=== PATIENT | female | born 1960 | race Caucasian/White ===

== ENCOUNTER → 2017-02-14 | Outpatient (CLI) | payer OTHER ==
--- NOTE | 2017-02-14 11:07 | US ---
EXAMINATION TYPE: US transvaginal DATE OF EXAM: 02/14/2017 COMPARISON: US 2017 CLINICAL HISTORY: N83.20 PREV OVARIAN CYST. Follow up right ovarian cyst, history of hysterectomy and tubal ligation, 3, para 3 TECHNIQUE: Transvaginal (TV) only per ordering physician Date of LMP: patient states about 10 years ago EXAM MEASUREMENTS: Uterus: surgically absent Endometrial Stripe: surgically absent Right Ovary: 5.5 x 2.8 x 2.8 cm Left Ovary: not seen 1. Uterus: surgically absent 2. Endometrium: surgically absent 3. Right Ovary: 4.6 x 1.7 x 1.9cm cystic area, 1 large bilobed cyst versus 2 separate smaller cysts 4. Left Ovary: not seen on today's exam 5. Bilateral Adnexa: wnl 6. Posterior cul-de-sac: wnl IMPRESSION: 1. Cystic lesion right ovary persists. Consider further imaging with MRI and/or CT.
== END | disposition home or self-care (01) ==
LOC: RADUSWWP 10:24
PROVIDERS: ATTEND Obstetrics & Gynecology
DX: N83.201 Unspecified ovarian cyst, right side (principal)
CPT/HCPCS: 76830

== ENCOUNTER → 2017-05-04 | Outpatient (CLI) | payer OTHER ==
--- NOTE | 2017-05-04 11:50 | US ---
EXAMINATION TYPE: US transvaginal DATE OF EXAM: 05/04/2017 COMPARISON: US CLINICAL HISTORY: N83.20 Unspecified ovarian cyst, right side. TECHNIQUE: Transvaginal sonographic images per order. Date of LMP: 10 years prior EXAM MEASUREMENTS: Uterus: Surgically absent Endometrial Stripe: Surgically absent Right Ovary: 4.5 x 1.5 x 1.1 Left Ovary: not visualized 1. Uterus: Surgically absent 2. Endometrium: Surgically absent 3. Right Ovary: cystic structure seen believed to be right ovary with no visualized ovarian tissue, extensive peristalsing bowel here making exam technically difficult 4. Left Ovary: Obscured by overlying bowel gas 5. Bilateral Adnexa: small amount of ff adjacent to right ovary 6. Posterior cul-de-sac: wnl IMPRESSION: Cystic focus is suspected in the right adnexal region somewhat similar to prior exam but perhaps slightly diminished in size in the interval. Exam is limited. Follow-up.
== END ==
LOC: RADUSWWP 10:57
PROVIDERS: ATTEND Obstetrics & Gynecology
DX: N83.201 Unspecified ovarian cyst, right side (principal)
CPT/HCPCS: 76830

== ENCOUNTER 2017-10-22 16:53 | Emergency (ER) | payer OTHER ==
[2017-10-22] MEDS ORDERED: IBUPROFEN 800 MG TAB PO STA (17:24)
--- NOTE | 2017-10-22 18:21 | XR ---
EXAMINATION TYPE: XR foot complete LT DATE OF EXAM: 10/22/2017 CLINICAL HISTORY: Fall, pain TECHNIQUE: Frontal, lateral, and oblique images of the left foot are obtained. COMPARISON: None FINDINGS: Obliquely oriented fracture of the fifth metatarsal diaphysis. No intra-articular extension of fracture line. Soft tissue swelling is evident. There is slight medial displacement of the distal fragment. No additional fractures. No radiopaque foreign bodies. IMPRESSION: Obliquely oriented mid diaphyseal fifth metatarsal fracture with soft issue swelling.
--- NOTE | 2017-10-22 18:23 | XR ---
EXAMINATION TYPE: XR ankle complete LT DATE OF EXAM: 10/22/2017 CLINICAL HISTORY: Fall, pain TECHNIQUE: Frontal, lateral and oblique images of the left ankle and foot are obtained. COMPARISON: None. FINDINGS: There is no acute fracture/dislocation evident in the left ankle. The ankle mortise appea rs within normal limits. The overlying soft tissue appears unremarkable. Fifth metatarsal fracture i s partially visualized and better described on concurrently performed foot radiograph. IMPRESSION: No fracture of the left ankle. For findings pertaining to the fifth metatarsal fracture please see se parate report.
--- NOTE | 2017-10-22 18:27 | ED ---
Lower Extremity Injury HPI - General Chief Complaint: Extremity Injury, Lower Stated Complaint: fall/foot pain Time Seen by Provider: 10/22/17 17:18 Source: patient, RN notes reviewed Mode of arrival: ambulatory Limitations: no limitations - History of Present Illness Initial Comments: This is a 57-year-old female who states that Monday morning around 6:30 AM she was rocking her 2-year-old grandson and walking around the house when she tripped on a highchair tray twisting her left foot and ankle. Patient stated that she iced and elevated taking ibuprofen 800mg PRN for pain. Patient describes the pain as a 6 out of 10 throbbing pain located to the left aspect of the foot and ankle that increases to about a 10 with ambulation. The pain radiates towards the left ankle from the left lateral aspect of the foot. Patient denies any numbness, tingling, loss sensation, paresthesias or muscle weakness. In addition to pain patient admitted to ecchymosis and soft tissue swelling of the foot and ankle. Patient was concerned when the pain continued for possible fracture present to the emergency department today. Patient denies falling when she stepped on the tray coming denying injury to any other extremity or to the head. - Related Data Previous Rx's Medication Instructions Recorded Ibuprofen [Motrin] 800 mg PO Q8H PRN 7 Days #21 tab 10/22/17 Allergies Allergy/AdvReac Type Severity Reaction Status Date / Time No Known Allergies Allergy Verified 10/22/17 17:02 Review of Systems ROS Statement: Those systems with pertinent positive or pertinent negative responses have been documented in the HPI. ROS Other: All systems not noted in ROS Statement are negative. Constitutional: Denies: fever, chills ENT: Denies: ear pain, throat pain Respiratory: Denies: cough, dyspnea Cardiovascular: Denies: chest pain, palpitations Endocrine: Denies: fatigue Gastrointestinal: Denies: abdominal pain, nausea, vomiting Genitourinary: Denies: urgency, dysuria Skin: Denies: rash, lesions Neurological: Denies: headache, weakness, numbness, abnormal gait Past Medical History Past Medical History: Thyroid Disorder Additional Past Medical History / Comment(s): interstitial cystitis History of Any Multi-Drug Resistant Organisms: None Reported Past Surgical History: Hysterectomy, Tonsillectomy 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 Eye: Pupils are equal, round and reactive to light, extra-ocular movements are intact. No nystagmus. There is normal conjunctiva bilaterally. No signs of icterus. Ears, nose, mouth and throat: There are moist mucous membranes and no oral lesions. Neck: The neck is supple, there is no tenderness or JVD. Cardiovascular: There is a regular rate and rhythm. No murmur, rub or gallop is appreciated. Respiratory: Lungs are clear to auscultation, respirations are non-labored, breath sounds are equal. No wheezes, stridor, rales, or rhonchi. Musculoskeletal: Soft tissue swelling and ecchymosis along the lateral aspect of the left ankle and foot. Full range motion ROM with inversion, eversion, dorsi flexion and plantar flexion of the ankles bilaterally, increased tenderness with inversion with 5/5 strength.Tenderness to palpation over dorsal aspect of left foot. no tenderness to palpation over the lateral or medial mallelous. Sensation intact of the LE equally b/l even between first webbed space. +2 dorsali pedis pulses equal bilaterally 2+. Capillary refill < 2seconds. Compartment soft and compressible. Neurological: A&O x 3. CN II-XII intact, There are no obvious motor or sensory deficits. Coordination appears grossly intact. Speech is normal. Skin: Skin is warm and dry and no rashes or lesions are noted. Psychiatric: Cooperative, appropriate mood & affect, normal judgment. Limitations: no limitations Course Vital Signs 10/22/17 10/22/17 16:57 18:56 Temperature 98.2 F 97.5 F L Pulse Rate 80 84 Respiratory 16 20 Rate Blood Pressure 153/77 130/70 O2 Sat by Pulse 97 99 Oximetry Medical Decision Making - Medical Decision Making 57yo female with cc of left foot pain, bruising or swelling concerning for possible fracture. Pt given ibuprofen 800mg for pain mgmt. XR revealed obliquely oriented mid diaphyseal fifth metatarsal fracture with soft tissue swelling, appear to have minimal displacement. Pt neurovascularly intact. Compartments compressible. Pt placed in posterior mold splint, given RX for crutches and ibuprofen 800mg for pain mgmt as well as orthopedic f/u in 1-2 days for further evaluation and treatment. Pt was educated on rice instructions , and instructed to return any worsening symptoms. Pt agreed, and I asked patient if she had any questions, she could not think of any at this time. Pt was discharged in stable condition after discussing case with Dr. Watson as well as reviewing the imaging together. Disposition Clinical Impression: Fracture of fifth metatarsal bone of left foot Disposition: HOME SELF-CARE Condition: Good Instructions: Foot Fracture in Adults (ED) Additional Instructions: Please use over the counter pain medication as discussed. Please follow-up with family doctor in the next 2 days with orthopedic surgery. Please return to emergency room if the symptoms increase or worsen or for any other concerns, as discussed. Prescriptions: Ibuprofen [Motrin] 800 mg PO Q8H PRN 7 Days #21 tab PRN Reason: Pain Is patient prescribed a controlled substance at d/c from ED?: No Referrals: Derrek Palm DO [Primary Care Provider] - 1-2 days Naga Camacho PAC [PHYSICIAN ESTIMATOR [facility]] - 1-2 days Time of Disposition: 18:33
[2017-10-22 18:57] VITALS: BP 130/70; PULSE 84; RESP 20; TEMP 97.5
== END 2017-10-22 18:58 | disposition home or self-care (01) ==
LOC: EC 16:53
DX: S92.352A Displaced fracture of fifth metatarsal bone, left foot, initial encounter for closed fracture (principal); X50.1XXA Overexertion from prolonged static or awkward postures, initial encounter; Y93.01 Activity, walking, marching and hiking
CPT/HCPCS: 29515; 99283

== ENCOUNTER → 2018-01-26 | Outpatient (CLI) | payer OTHER ==
--- NOTE | 2018-01-29 11:52 | MM ---
Reason for exam: screening (asymptomatic). Last mammogram was performed 1 year and 1 month ago. History: Patient is postmenopausal. Physical Findings: A clinical breast exam by your physician is recommended on an annual basis and results should be correlated with mammographic findings. MG 3D Screening Mammo W/Cad Bilateral CC and MLO view(s) were taken. Prior study comparison: December 31, 2016, bilateral MG 3d screening mammo w/cad. November 28, 2015, bilateral MG 3d screening mammo w/cad. The breast tissue is heterogeneously dense. This may lower the sensitivity of mammography. Finding #1: There is a 7 mm equal density (isodense) mass in the upper quadrant, central position of the right breast. Finding #2: There are typically benign calcifications. ASSESSMENT: Incomplete: need additional imaging evaluation, BI-RAD 0 RECOMMENDATION: Special view mammogram of the right breast. If lesion persists on supplemental views, image directed ultrasound is recommended. [facility] will attempt to contact patient to return for supplemental views and ultrasound if indicated.
== END | disposition home or self-care (01) ==
LOC: RADMAMWWP 10:52
PROVIDERS: ATTEND Obstetrics & Gynecology
DX: Z12.31 Encounter for screening mammogram for malignant neoplasm of breast (principal)
CPT/HCPCS: 77063; 77067

== ENCOUNTER → 2018-02-09 | Outpatient (CLI) | payer OTHER ==
--- NOTE | 2018-02-09 11:25 | MM ---
Reason for exam: additional evaluation requested from abnormal screening. Last mammogram was performed less than 1 month ago. History: Patient is postmenopausal. Physical Findings: Nurse did not find any significant physical abnormalities on exam. MG 3D Work Up W/Cad RT Spot compression CC, spot compression MLO, and ML view(s) were taken of the right breast. Prior study comparison: January 26, 2018, bilateral MG 3d screening mammo w/cad. December 31, 2016, bilateral MG 3d screening mammo w/cad. The breast tissue is heterogeneously dense. This may lower the sensitivity of mammography. There is no discrete abnormality on compression or ML. No significant new findings when compared with previous films. These results were verbally communicated with the patient and result sheet given to the patient on 02/09/18. ASSESSMENT: Benign, BI-RAD 2 RECOMMENDATION: Return to routine screening mammogram schedule for both breasts.
--- NOTE | 2018-02-09 16:49 | BD ---
EXAMINATION TYPE: Axial Bone Density DATE OF EXAM: 02/09/2018 COMPARISON: 01.06.2016 CLINICAL HISTORY: 57 YR OLD FEMALE.....ICD-10 CODE: M89.9 DISORDER OF BONE Height: 62.8 Weight: 144 FRAX RISK QUESTIONS: NOTHING TO NOTE HERE RISK FACTORS HISTORY OF: Family History of Osteoporosis: GR GRANDMOTHER Active: YES, SHE WORKD Postmenopausal woman: UNKNOWN, PARTIAL HYST AT 47 YRS OLD MEDICATIONS: Thyroid Medications: YES, SYNTHROID, FOR ABOUT 5+ YRS Additional Medications: WELLBUTRIN, VIT D AND CALCIUM, STATIN FOR CHOLESTEROL Additional History: NOTHING ADDITIONAL TO NOTE EXAM MEASUREMENTS: Bone mineral densitometry was performed using the [employer] System. Bone mineral density as measured about the Lumbar spine is: ----- L1-L4(G/cm2): 0.940 T Score Values are as follows: ----- L1: -1.4 ----- L2: -2.7 ----- L3: -1.8 ----- L4: -2.2 ----- L1-L4: -2.0 Bone mineral density has: Increased 3.3% since study of: 01.06.2016 Bone mineral density about the R hip (g/cm2): 0.857 Bone mineral density about the L hip (g/cm2): 0.833 T Score values are as follows: -----R Neck: -1.8 -----L Neck: -1.8 -----R Total: -1.2 -----L Total: -1.4 Bone mineral density has: Decreased -2.1% since study of: 01.06.2016 FRAX%s: THERE IS A 8.3% CHANCE FOR A MAJOR OSTEOPOROTIC FX AND A 0.9% FOR HIP FX....PROBABILITY OF FX IN 10 YRS TIME IMPRESSION: Osteopenia (T Score between -2.5 and -1). There is slightly increased risk of fracture and the patient may be considered for treatment. Re-Screen 2-5 years. NOTE: T-SCORE=SD OF THE YOUNG ADULT MEAN.
== END | disposition home or self-care (01) ==
LOC: RADMAMWWP 09:51
PROVIDERS: ATTEND Obstetrics & Gynecology
DX: R92.8 Other abnormal and inconclusive findings on diagnostic imaging of breast (principal); M85.80 Other specified disorders of bone density and structure, unspecified site
CPT/HCPCS: 77080; 77065; G0279; 77061

== ENCOUNTER → 2019-02-02 | Outpatient (CLI) | payer OTHER ==
--- NOTE | 2019-02-05 08:02 | MM ---
Reason for exam: screening (asymptomatic). Last mammogram was performed 1 year ago. History: Patient is postmenopausal. Physical Findings: A clinical breast exam by your physician is recommended on an annual basis and results should be correlated with mammographic findings. MG 3D Screening Mammo W/Cad Bilateral CC and MLO view(s) were taken. Prior study comparison: February 09, 2018, right breast MG 3d work up w/cad RT. January 26, 2018, bilateral MG 3d screening mammo w/cad. The breast tissue is heterogeneously dense. This may lower the sensitivity of mammography. Focal asymmetry right MLO view. This finding is changed when compared with previous exams. ASSESSMENT: Incomplete: need additional imaging evaluation, BI-RAD 0 RECOMMENDATION: Special view mammogram of the right breast. If lesion persists on supplemental views, image directed ultrasound is recommended. [facility] will attempt to contact patient to return for supplemental views and ultrasound if indicated.
== END | disposition home or self-care (01) ==
LOC: RADMAMWWP 09:59
PROVIDERS: ATTEND Obstetrics & Gynecology
DX: Z12.31 Encounter for screening mammogram for malignant neoplasm of breast (principal)
CPT/HCPCS: 77063; 77067

== ENCOUNTER → 2019-02-22 | Outpatient (CLI) | payer OTHER ==
--- NOTE | 2019-02-22 11:05 | MM ---
Reason for exam: additional evaluation requested from abnormal screening. Last mammogram was performed 1 month ago. History: Patient is postmenopausal. Physical Findings: Nurse did not find any significant physical abnormalities on exam. MG 3D Work Up W/Cad RT LM and spot compression MLO view(s) were taken of the right breast. Prior study comparison: February 02, 2019, bilateral MG 3d screening mammo w/cad. February 09, 2018, right breast MG 3d work up w/cad RT. No definite new lesion persists on additional views. These results were verbally communicated with the patient and result sheet given to the patient on 02/22/19. ASSESSMENT: Negative, BI-RAD 1 RECOMMENDATION: Return to routine screening mammogram schedule for both breasts.
== END | disposition home or self-care (01) ==
LOC: RADMAMWWP 10:17
PROVIDERS: ATTEND Obstetrics & Gynecology
DX: R92.8 Other abnormal and inconclusive findings on diagnostic imaging of breast (principal)
CPT/HCPCS: 77065; G0279; 77061

== ENCOUNTER → 2020-02-11 | Outpatient (CLI) | payer OTHER ==
--- NOTE | 2020-02-11 13:28 | MM ---
Reason for exam: screening (asymptomatic). Last mammogram was performed 1 year ago. History: Patient is postmenopausal. Physical Findings: A clinical breast exam by your physician is recommended on an annual basis and results should be correlated with mammographic findings. MG 3D Screening Mammo W/Cad Bilateral CC, MLO, and XCCL view(s) were taken. Prior study comparison: February 22, 2019, right breast MG 3d work up w/cad RT. February 02, 2019, bilateral MG 3d screening mammo w/cad. The breast tissue is heterogeneously dense. This may lower the sensitivity of mammography. There are benign appearing round calcifications bilaterally. There is no discrete abnormality. ASSESSMENT: Benign, BI-RAD 2 RECOMMENDATION: Routine screening mammogram of both breasts in 1 year.
== END | disposition home or self-care (01) ==
LOC: RADMAMWWP 09:42
PROVIDERS: ATTEND Obstetrics & Gynecology
DX: Z12.31 Encounter for screening mammogram for malignant neoplasm of breast (principal)
CPT/HCPCS: 77063; 77067

== ENCOUNTER → 2020-08-21 | Outpatient (CLI) | payer OTHER ==
[2020-08-21 13:02] LABS: Basophils % (A) 1 %; Eosinophils # (A) 0.1 k/uL (0-0.7); Eosinophils % (A) 2 %; HCT 39.2 % (34.0-46.0); HGB 13.5 gm/dL (11.4-16.0); Lymphocytes # (A) 1.8 k/uL (1.0-4.8); Lymphocytes % (A) 38 %; MCH 32.2 pg (25.0-35.0); MCHC 34.4 g/dL (31.0-37.0); MCV 93.6 fL (80.0-100.0); Mean Platelet Volume 7.4; Monocytes # (A) 0.2 k/uL (0-1.0); Monocytes % (A) 3 %; Neutrophils # (A) 2.6 k/uL (1.3-7.7); Neutrophils % (A) 54 %; Platelet Count 189 k/uL (150-450); RBC 4.18 m/uL (3.80-5.40); RDW 12.7 % (11.5-15.5); WBC 4.8 k/uL (3.8-10.6)
[2020-08-21 13:44] LABS: Potassium 4.4 mmol/L (3.5-5.1)
== END | disposition home or self-care (01) ==
LOC: LABPAT 12:18
PROVIDERS: ATTEND Orthopaedic Surgery
DX: Z01.812 Encounter for preprocedural laboratory examination (principal); G56.01 Carpal tunnel syndrome, right upper limb
CPT/HCPCS: 36415; 80051; 85025; 93005

== ENCOUNTER 2020-09-11 09:54 | Day surgery (SDC) | payer OTHER ==
--- NOTE | 2020-09-10 10:11 | HP ---
HISTORY AND PHYSICAL CHIEF COMPLAINT: Right hand pain and numbness. 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 It has worsened recently. She is having pain at night in addition to weakness in her spinner frame during the day. She has been wearing braces and in addition has had an injection and has tried medications. PAST MEDICAL HISTORY: Significant for hypothyroidism. PAST SURGICAL HISTORY: Negative. CURRENT MEDICATIONS: Levothyroxine, simvastatin, Wellbutrin, and Cetirizine. ALLERGIES: She denies drug allergies. FAMILY HISTORY: Significant for liver disease and cancer. SOCIAL HISTORY: Negative for current tobacco or alcohol use. REVIEW OF SYSTEMS: Sixteen-point review of systems otherwise reviewed and is noncontributory. PHYSICAL EXAMINATION: On examination, the patient is approximately 5 foot 2 inches, 156 pounds of mesomorphic habitus. HEENT exam is nonfocal. NECK is supple. She is nontender about the right shoulder and elbow. On examination of her right wrist, she has a positive Tinel's over the carpal canal. Adductor pollicis brevis strength 4- over 5. There is mild thenar wasting. Light touch is mildly diminished in the thumb, index and middle finger. EMG report of the right upper extremity shows moderate carpal tunnel syndrome. IMPRESSION: Symptomatic right carpal tunnel syndrome. RECOMMENDATIONS: I talked to the patient at length regarding her condition and treatment options. At this point she remains symptomatic despite previous conservative measures. After thorough discussion, she opts to proceed with surgery. We will plan to proceed with right carpal tunnel release. We will perform that as an outpatient procedure utilizing local anesthetic and IV sedation. MMODL / IJN: [id number] /
[~2020-09-11 09:54] MED LIST: DEXAMETHASONE SOD PHOSPHATE 4 MG/ML 1 ML VIAL IV ONE; HYDROmorphone 0.5 MG/0.5 ML SYRINGE IVP PRN; LACTATED RINGERS 1,000 ML IV SCH; LIDOCAINE 1% (10MG/ML) FOR IV START INTRADERMA PRN; SCOPOLAMINE 1.5MG/72HR PATCH TRANSDERM ONE
[2020-09-11] MEDS ORDERED: ONDANSETRON 4 MG/2 ML VIAL ONE (10:07)
[2020-09-11 10:08] VITALS: TEMP 97.8
[2020-09-11] MEDS ORDERED: fentaNYL (PF) 50 MCG/ML 2 ML AMP ONE (11:10)
[2020-09-11] MEDS ORDERED: MIDAZOLAM 2 MG/2 ML VIAL ONE (11:10)
[2020-09-11] MEDS ORDERED: PROPOFOL 10 MG/ML 20 ML VIAL IV ONE (11:10)
[2020-09-11] MEDS ORDERED: BUPIVACAINE (PF) 0.25% 30 ML VIAL SQ ONE (11:26)
--- NOTE | 2020-09-11 11:41 | P.OP ---
Date of Procedure: 09/11/20 Preoperative Diagnosis: Right carpal tunnel syndromesymptomatic Postoperative Diagnosis: Same Procedure(s) Performed: Right carpal tunnel release Anesthesia: MAC, local Surgeon: Giuliano Quarles Estimated Blood Loss (ml): 1 Pathology: none sent Condition: stable Disposition: PACU Indications for Procedure: The patient's a 60-year-old female presents with progressive right hand pain and numbness secondary carpal tunnel syndrome despite conservative measures. He discussion of the risks and benefits of operative intervention versus continued conservative measures made patient. She opted to proceed with surgery. Operative risks to include infection, neurovascular injury, development of blood clots, possible development of reflex sympathetic dystrophy, possible incomplete resolution of symptoms and need for subsequent procedures was discussed. Informed consent was obtained. Operative Findings: As below Description of Procedure: The patient was brought to the operating room, and after induction of IV sedation the right upper extremity was prepped and draped in normal fashion. The proposed incision site was outlined skin marker in line with the radial aspect the fourth ray extending from the volar wrist crease distally 2-1/2 cm. One quarter percent plain Marcaine was injected into the proposed incision site. 9 mL was utilized. The tourniquet was inflated to 250 mmHg. The skin incision was then made. The skin was incised sharply. Subcutaneous tissues were divided sharply the superficial palmar fascia was identified and split in line with the skin incision. The transverse carpal ligament was identified and transected under direct visualization distally to level the palmar fat pad. Proximal was taken level of the volar wrist crease. A plane above and below the transverse carpal ligament was then bluntly developed with tenotomies. The confluence of the distal forearm fascia and the transverse carpal ligament was then transected under direct visualization proximally with the tines pointed in the ulnar direction. I felt this was adequate proximal release. Neural lysis was not performed. The wound was irrigated with normal saline. Electrocautery was used for hemostasis. The skin was reapproximated with simple 3-0 nylon sutures. A sterile dressing was applied. The tourniquet was deflated with less than 15 minutes total tourniquet time. Patient was awoken from sedation and transferred to the recovery room in good condition. Blood loss was estimated 1 mL. No complications were incurred. Sponge and needle counts were correct at the end the case.
[2020-09-11 11:48] VITALS: RESP 16
[2020-09-11 11:58] VITALS: BP 165/94; PULSE 90
== END 2020-09-11 12:27 | disposition home or self-care (01) ==
LOC: OR 09:54
PROVIDERS: ATTEND Orthopaedic Surgery
DX: G56.01 Carpal tunnel syndrome, right upper limb (principal); E03.9 Hypothyroidism, unspecified; Z79.899 Other long term (current) drug therapy; I10 Essential (primary) hypertension; E78.5 Hyperlipidemia, unspecified; F32.9 Major depressive disorder, single episode, unspecified; E07.9 Disorder of thyroid, unspecified
CPT/HCPCS: 64721; J2250; J1100; J2405; J0690; J3010; J2704

== ENCOUNTER → 2020-11-06 | Outpatient (CLI) | payer OTHER ==
--- NOTE | 2020-11-06 13:31 | XR ---
EXAMINATION TYPE: XR chest 2V DATE OF EXAM: 11/06/2020 COMPARISON: NONE HISTORY: Shortness of breath TECHNIQUE: Frontal and lateral views of the chest are obtained. FINDINGS: Scattered senescent parenchymal changes noted. Hyperinflation compatible with COPD. No evidence for infiltrate. No evidence for atelectasis. Heart size is stable. Mediastinal structures are stable and grossly unremarkable. No evidence for hilar prominence. Degenerative changes dorsal spine. IMPRESSION: 1. No evidence for acute pulmonary disease.
== END | disposition home or self-care (01) ==
LOC: RADXRMAIN 13:02
PROVIDERS: ATTEND Nurse Practitioner Family
DX: R06.02 Shortness of breath (principal)
CPT/HCPCS: 71046

== ENCOUNTER → 2021-02-16 | Outpatient (CLI) | payer OTHER ==
--- NOTE | 2021-02-17 14:05 | MM ---
Reason for exam: screening (asymptomatic). Last mammogram was performed 1 year ago. History: Patient is postmenopausal. Physical Findings: A clinical breast exam by your physician is recommended on an annual basis and results should be correlated with mammographic findings. MG 3D Screening Mammo W/Cad Bilateral CC and MLO view(s) were taken. Prior study comparison: February 11, 2020, bilateral MG 3d screening mammo w/cad. February 22, 2019, right breast MG 3d work up w/cad RT. The breast tissue is heterogeneously dense. This may lower the sensitivity of mammography. Benign appearing bilateral calcifications. There is chronic nodularity in the right breast, stable. No significant changes when compared with prior studies. ASSESSMENT: Benign, BI-RAD 2 RECOMMENDATION: Routine screening mammogram of both breasts in 1 year.
== END | disposition home or self-care (01) ==
LOC: RADMAMWWP 07:22
PROVIDERS: ATTEND Obstetrics & Gynecology
DX: Z12.31 Encounter for screening mammogram for malignant neoplasm of breast (principal); Z78.0 Asymptomatic menopausal state
CPT/HCPCS: 77063; 77067

== ENCOUNTER → 2022-01-27 | Outpatient (CLI) | payer OTHER ==
--- NOTE | 2022-01-27 17:25 | BD ---
EXAMINATION TYPE: Axial Bone Density DATE OF EXAM: 01/27/2022 COMPARISON: 02/09/2018 CLINICAL HISTORY: 61 years year old Female. ICD-10 CODE: [id number] DISORD OF BONE DENSITY AND STRUCTURE Height: 62.75 Weight: 152.6 FRAX RISK QUESTIONS: Alcohol (3 or more units per day): NO Family History (Parent hip fracture): NO Glucocorticoids (More than 3mos): NO History of Fracture in Adulthood: FOOT Secondary Osteoporosis: 1. Type 1 Diabetes: NO 2. Hyperthyroidism: NO 3. Menopause before 45: NO 4. Malnutrition: NO 5. Chronic liver disease: NO Rheumatoid Arthritis: NO Current Tobacco Use: NO RISK FACTORS HISTORY OF: Hip Fracture (Right/Left): NO Spine Fracture: NO History of Wrist Fracture: NO Surgery to Spine/Hip(right/left)/Wrist (right/left): NO Family History of Osteoporosis: NO Active: YES Diet low in dairy products/other sources of calcium: NO Postmenopausal woman: YES Take estrogen and/or progesterone medications: NO Lost more than 2 inches in height since high school: NO Frequent falls: NO Poor Health: NO Hyperparathyroidism: NO Adrenal Insufficiency: NO MEDICATIONS: Prednisone or other steroids: NO Thyroid Medications: LEVOTHYROXINE: How Long: PAST 10 YEARS Osteoporosis Medications: NO Additional Medications: CALCIUM, VIT D, LEVOTHYROXINE, CHOLESTEROL MEDS, WELLBUTRIN, BLOOD PRESSURE M EDS, MULTI VIT, EXAM MEASUREMENTS: Bone mineral densitometry was performed using the [employer] System. Bone mineral density as measured about the Lumbar spine is: ----- L1-L4(G/cm2): 0.912 T Score Values are as follows: ----- L1: -2.3 ----- L2: -3.2 ----- L3: -1.5 ----- L4: -2.2 ----- L1-L4: -2.2 Bone mineral density has: INCREASED 2.8 % since study of: 01/06/2016 Bone mineral density about the R hip (g/cm2): 0.817 Bone mineral density about the L hip (g/cm2): 0.843 T Score values are as follows: -----R Neck: -1.6 -----L Neck: -1.4 -----R Total: -1.1 -----L Total: -0.7 Bone mineral density has: INCREASED 3.8 % since study of: 01/06/2016 FRAX%s: The graph provided illustrates a 14.6% chance for a major osteoporotic fx and a 1.5% chance f or the hips probability for fx in 10 years time. IMPRESSION: Osteopenia (T Score between -2.5 and -1). Note that measurements are bordering on osteoporosis at the lumbar spine. There is slightly increased risk of fracture and the patient may be considered for treatment. Re-Screen 2-5 years. NOTE: T-SCORE=SD OF THE YOUNG ADULT MEAN.
== END | disposition home or self-care (01) ==
LOC: RADBDWWP 09:47
PROVIDERS: ATTEND Obstetrics & Gynecology
DX: M85.89 Other specified disorders of bone density and structure, multiple sites (principal); Z79.52 Long term (current) use of systemic steroids
CPT/HCPCS: 77080

== ENCOUNTER → 2022-03-11 | Outpatient (CLI) | payer OTHER ==
--- NOTE | 2022-03-14 09:46 | MM ---
Reason for Exam: Screening (asymptomatic). Last mammogram was performed 1 year(s) and 1 month(s) ago. Patient History: Menarche at age 12. First Full-Term at age 25. Hysterectomy at age 46. Postmenopausal. Risk Values: Jessie 5 year model risk: 1.6%. NCI Lifetime model risk: 7.9%. Prior Study Comparison: 02/22/2019 Right Diagnostic Mammogram, [facility]. 02/11/2020 Bilateral Screening Mammogram, [facility]. 02/16/2021 Bilateral Screening Mammogram, [facility]. Tissue Density: The breast tissue is heterogeneously dense. This may lower the sensitivity of mammography. Findings: Analyzed By CAD. There is no suspicious group of microcalcifications or new suspicious mass in either breast. Benign-appearing calcifications within both breasts. Stable chronic nodularity within the right breast. Overall Assessment: Benign, BI-RAD 2 Management: Screening Mammogram of both breasts in 1 year. A clinical breast exam by your physician is recommended on an annual basis and results should be correlated with mammographic findings. Electronically signed and approved by: Bird Conklin D.O.
== END | disposition home or self-care (01) ==
LOC: RADMAMWWP 09:18
PROVIDERS: ATTEND Obstetrics & Gynecology
DX: Z12.31 Encounter for screening mammogram for malignant neoplasm of breast (principal); Z78.0 Asymptomatic menopausal state
CPT/HCPCS: 77063; 77067

== ENCOUNTER → 2023-05-04 | Outpatient (CLI) | payer BC ==
--- NOTE | 2023-05-05 08:51 | MM ---
Reason for Exam: Screening (asymptomatic). Last mammogram was performed 1 year(s) and 2 month(s) ago. Patient History: Menarche at age 12. First Full-Term at age 25. Hysterectomy at age 46. Postmenopausal. Risk Values: Jessie 5 year model risk: 1.7%. NCI Lifetime model risk: 7.4%. Prior Study Comparison: 02/11/2020 Bilateral Screening Mammogram, [facility]. 02/16/2021 Bilateral Screening Mammogram, [facility]. 03/11/2022 Bilateral MG 3D screening mammo w/cad, [facility]. Tissue Density: The breasts are heterogeneously dense, which may obscure small masses. Findings: Analyzed By CAD. There is no suspicious group of microcalcifications or new suspicious mass in either breast. Overall Assessment: Benign, BI-RAD 2 Management: Screening Mammogram of both breasts in 1 year. . Patient should continue monthly self-breast exams. A clinical breast exam by your physician is recommended on an annual basis. This exam should not preclude additional follow-up of suspicious palpable abnormalities. Note on Jessie scores and lifetime risk: 1. A Jessie score greater than 3% is considered moderate risk. If this is the case, consider specialist referral to assess eligibility for a risk reducing agent. 2. If overall lifetime risk for the development of breast cancer is 20% or higher, the patient may qualify for future screening with alternating mammogram and breast MRI. Electronically signed and approved by: Curly Samson M.D. Radiologis
== END | disposition home or self-care (01) ==
LOC: RADMAMWWP 11:20
PROVIDERS: ATTEND Obstetrics & Gynecology
DX: Z12.31 Encounter for screening mammogram for malignant neoplasm of breast (principal); Z78.0 Asymptomatic menopausal state
CPT/HCPCS: 77063; 77067

== ENCOUNTER → 2024-09-11 | Outpatient (CLI) | payer BC ==
--- NOTE | 2024-09-11 10:14 | MM ---
Reason for Exam: Screening (asymptomatic). Last mammogram was performed 1 year(s) and 4 month(s) ago. Patient History: Menarche at age 12. First Full-Term at age 25. Hysterectomy at age 46. Postmenopausal. Risk Values: Jessie 5 year model risk: 1.8%. NCI Lifetime model risk: 7.2%. Prior Study Comparison: 01/26/2018 Bilateral Screening Mammogram, [facility]. 02/09/2018 Right Diagnostic Mammogram, [facility]. 02/02/2019 Bilateral Screening Mammogram, [facility]. 02/22/2019 Right Diagnostic Mammogram, [facility]. 02/11/2020 Bilateral Screening Mammogram, [facility]. 02/16/2021 Bilateral Screening Mammogram, [facility]. 03/11/2022 Bilateral MG 3D screening mammo w/cad, [facility]. 05/04/2023 Bilateral MG 3D screening mammo w/cad, [facility]. Tissue Density: The breasts are heterogeneously dense, which may obscure small masses. Findings: Analyzed By CAD. There is no suspicious group of microcalcifications or new suspicious mass in either breast. Overall Assessment: Negative, BI-RAD 1 Management: Screening Mammogram of both breasts in 1 year. . Patient should continue monthly self-breast exams. A clinical breast exam by your physician is recommended on an annual basis. This exam should not preclude additional follow-up of suspicious palpable abnormalities. Note on Jessie scores and lifetime risk: 1. A Jessie score greater than 3% is considered moderate risk. If this is the case, consider specialist referral to assess eligibility for a risk reducing agent. 2. If overall lifetime risk for the development of breast cancer is 20% or higher, the patient may qualify for future screening with alternating mammogram and breast MRI. [facility], , 09/11/2024 10:11 AM. Electronically signed and approved by: Curly Samson M.D. Radiologis
== END | disposition home or self-care (01) ==
LOC: RADMAMWWP 09:02
PROVIDERS: ATTEND Family Medicine
DX: Z12.31 Encounter for screening mammogram for malignant neoplasm of breast (principal); R92.333 Mammographic heterogeneous density, bilateral breasts; Z78.0 Asymptomatic menopausal state
CPT/HCPCS: 77063; 77067